=== PATIENT | female | born 1995 | race Caucasian/White ===

== ENCOUNTER 2020-10-23 05:20 | Day surgery (SDC) | payer OTHER ==
[~2020-10-23] VITALS: Ht 170.2 cm; Wt 112.6 kg
[2020-10-23 06:02] VITALS: BP 143/83
[2020-10-23] MEDS ORDERED: VITAMIN D PO (06:02)
[2020-10-23] MEDS ORDERED: OXYTOCIN 10 UNITS/ML, 1ML ONE (06:05)
[2020-10-23] MEDS ORDERED: BUPIVACAINE/PF 0.25% ONE (06:05)
[2020-10-23] MEDS ORDERED: METHYLERGONOVINE 0.2 MG/ML IM ONE (06:05)
[2020-10-23] MEDS ORDERED: SILVER NITRATE STICK TP ONE (06:05)
[2020-10-23] MEDS ORDERED: MISOPROSTOL 200 MCG TABLET ONE (06:05)
[2020-10-23] MEDS ORDERED: CHLORHEXIDINE 15 ML UDC ONE (06:12)
[2020-10-23 06:20] LABS: BASOPHILS % (AUTO) 1 % (0-1); EOSINOPHILS % (AUTO) 4 % (1-7); LYMPHOCYTES % (AUTO) 21 % (22-44); MEAN CORPUSCULAR HEMOGLOBIN 27.2 pg (27.0-34.8); MEAN CORPUSCULAR HGB CONC 33.1 g/dL (32.4-35.8); MONOCYTES % (AUTO) 7 % (2-9); NEUTROPHILS % (AUTO) 67 % (42-75); PLATELET COUNT 245 x10^3/uL (130-400); RED CELL DISTRIBUTION WIDTH 13.8 % (9.6-15.2)
[2020-10-23 06:22] LABS: MD NO
[2020-10-23] MEDS ORDERED: LACTATED RINGERS 1,000 ML IV SCH (06:30)
[2020-10-23] MEDS ORDERED: CHLORHEXIDINE 15 ML UDC PO ONE (06:30)
[2020-10-23] MEDS ORDERED: FENTANYL PF 100 MCG/2ML ONE ×2 (06:52→08:03)
[2020-10-23] MEDS ORDERED: PROPOFOL 50 ML ONE (06:52)
[2020-10-23] MEDS ORDERED: MIDAZOLAM 1 MG/ML, 2ML ONE (06:52)
[2020-10-23] MEDS ORDERED: MEPERIDINE/PF 25MG/0.5ML IVPush PRN (07:00)
[2020-10-23] MEDS ORDERED: PROMETHAZINE 25 MG/ML, 1ML IVPush PRN (07:00)
[2020-10-23] MEDS ORDERED: FENTANYL PF 100 MCG/2ML IV PRN (07:00)
[2020-10-23] MEDS ORDERED: HYDROmorphone 1 MG/ML, 1ML INJ IVPush PRN (07:00)
[2020-10-23] MEDS ORDERED: DIPHENHYDRAMINE 50 MG/ML, 1ML IVPush PRN (07:00)
[2020-10-23] MEDS ORDERED: hydrALAzine 20 MG/ML, 1ML IV PRN (07:00)
[2020-10-23] MEDS ORDERED: OXYcodone 5 MG/5 ML ORAL.SOL UDC PO PRN (07:00)
[2020-10-23] MEDS ORDERED: LABETALOL 5MG/ML, 20ML IV PRN (07:00)
[2020-10-23] MEDS ORDERED: HALOPERIDOL 5 MG/ML IV PRN (07:00)
[2020-10-23] MEDS ORDERED: ACETAMINOPHEN 325 MG TABLET PO PRN (07:00)
[2020-10-23] MEDS ORDERED: PROPOFOL 10 MG/ML, 20ML ONE (07:30)
[2020-10-23] MEDS ORDERED: DEXAMETHASONE 4 MG/ML, 1ML ONE (07:30)
[2020-10-23] MEDS ORDERED: ONDANSETRON 2MG/ML, 2ML ONE (07:30)
[2020-10-23] MEDS ORDERED: CEFAZOLIN 1,000 MG ONE (07:30)
[2020-10-23] MEDS ORDERED: OXYcodone 5 MG/5 ML ORAL.SOL UDC ONE (08:03)
[2020-10-23] MEDS ORDERED: ACETAMINOPHEN 650 MG/20.3 ML UDC ONE (08:03)
== END 2020-10-23 09:00 | disposition home or self-care (01) ==
LOC: OUT 05:20
PROVIDERS: ATTEND Obstetrics & Gynecology
DX: O02.1 Missed abortion (principal); Z20.822 Contact with and (suspected) exposure to COVID-19; Z79.899 Other long term (current) drug therapy; Z88.0 Allergy status to penicillin; Z88.8 Allergy status to other drugs, medicaments and biological substances
CPT/HCPCS: 36415; 59820; 85025; 86850; 86900; 87635; 88305; J0690; J1100; J2210; J2250; J2405; J2704; J3010; J7120; J2590